=== PATIENT | male | born 1955 ===

== ENCOUNTER 2016-11-06 13:07 | Emergency (ER) | payer OTHER ==
[2016-11-06] MEDS ORDERED: Bacitracin 500 Units/gm Oint Foilpak UD TOP ONE (14:44)
[2016-11-06] MEDS ORDERED: Lidocaine 2% Inj (20ml) INFIL ONE (14:45)
[2016-11-06] MEDS ORDERED: Bacitracin 500 Units/gm Oint Foilpak UD ONE ×2 (15:06→17:36)
[2016-11-06] MEDS ORDERED: Lidocaine 2% Inj (20ml) ONE (15:06)
--- NOTE | 2016-11-06 15:15 | C.PDOC ---
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 Pt notes that he was carrying a refrigerator on the stairs, it fell and cut his hands. No change in sensation. Right hand dominant. Patient denies fever , chills, nausea, vomiting, LOC, or any other complaints Time Seen by Provider: 11/06/16 14:03 Chief Complaint (Nursing): Finger,Hand,&Wrist History Per: Patient History/Exam Limitations: other (Poor historian) Onset/Duration Of Symptoms: Hrs Current Symptoms Are (Timing): Still Present Quality: "Pain" Severity: Moderate Exacerbating Factor(s): Movement Additional History Per: Patient Past Medical History Reviewed: Historical Data, Nursing Documentation, Vital Signs Vital Signs: Last Vital Signs Temp 97.7 F 11/06/16 18:00 Pulse 78 11/06/16 18:00 Resp 18 11/06/16 18:00 BP 124/87 11/06/16 18:00 Pulse Ox 94 L 11/06/16 18:00 - Medical History PMH: Asthma Family History: States: Unknown Family Hx - Social History Hx Alcohol Use: Yes Hx Substance Use: No - Immunization History Hx Tetanus Toxoid Vaccination: No Hx Influenza Vaccination: No Hx Pneumococcal Vaccination: No Review Of Systems Review Of Systems: ROS cannot be obtained secondary to pt's inabilty to answer questions. Constitutional: Negative for: Fever, Chills Gastrointestinal: Negative for: Nausea, Vomiting Musculoskeletal: Positive for: Hand Pain (left hand lacerations) Neurological: Negative for: Other (LOC) Physical Exam - Physical Exam Appears: Non-toxic, No Acute Distress Skin: Warm, Dry, Other (multiple lacerations to the fingers, see procedure note. FROM. No change in sensation. ) Head: Atraumatic, Normacephalic Eye(s): bilateral: Normal Inspection, EOMI Nose: Normal Oral Mucosa: Moist Chest: Symmetrical Respiratory: No Accessory Muscle Use Extremity: Normal ROM, Tenderness, Capillary Refill (<2sec), Swelling Pulses: Left Radial: Normal, Right Radial: Normal Neurological/Psych: Oriented x3, Normal Speech, Normal Sensation ED Course And Treatment O2 Sat by Pulse Oximetry: 99 (RA) Pulse Ox Interpretation: Normal Progress Note: Plans: Bacitracin, Lidocaine, Tetanus, Ultram, X-Ray left hand, reassess and disposition. Immediately prior to procedure a "time out" was called to verify the correct patient, procedure and site. . Procedure: 4th finger. - 2cm "V" shape laceration to the mckenna aspect with 4 stitches of 5-0 nylon applied. -1 cm Dorsal aspect has "7" shape laceration with 4 stitches of 5-0 nylon applied. 3rd finger. -2 cm Superficial laceration to the radial aspect. Dermabond and steri strips applied. 2nd finger. -3cm : "V" shape laceration to the mckenna aspect with 8 stitches of 5-0 nylon applied. No foreign body or deep structure involvement was detected. Entire laceration closed with sutures. Patients condition remained stable throughout Emergency Department evaluation with no evidence of neurologic instability. There is always a risk of undetected foreign body nerve or tendon injury, therefore the importance of close follow-up care was stressed. Finger splint applied by pump technician. Patient was instructed to returned to the ER within 10-14 for sutras removal. Disposition - Disposition Disposition: HOME/ ROUTINE Disposition Time: 17:23 Condition: STABLE Additional Instructions: Wound check in 2 days. Suture removal in 10 days. Watch for signs of infection including redness, swelling and discharge. Prescriptions: Bacitracin OINT 1 applic TP BID #1 tube Cephalexin [cephalexin] 500 mg PO BID #14 cap Instructions: Finger Laceration (ED) Forms: Work Excuse Print Language: MOROCCAN - Clinical Impression Clinical Impression: Finger laceration - Scribe Statement The provider has reviewed the documentation as recorded by the Scribe Jose Raul gaffney All medical record entries made by the Skyeibrebecca were at my direction and personally dictated by me. I have reviewed the chart and agree that the record accurately reflects my personal performance of the history, physical exam, medical decision making, and the department course for this patient. I have also personally directed, reviewed, and agree with the discharge instructions and disposition.
--- NOTE | 2016-11-06 16:56 | RAD ---
PROCEDURE: Left Hand Radiographs. HISTORY: trauma COMPARISON: None available. FINDINGS: BONES: Ossific densities adjacent to the ulna styloid presumed related to remote injury ; correlate with physical exam in order to assess for point tenderness . No acute displaced fracture. JOINTS: No dislocation. SOFT TISSUES: Unremarkable. No evidence of radiopaque foreign body. OTHER FINDINGS: None. IMPRESSION: Ossific densities adjacent to the ulna styloid presumed related to remote injury ; correlate with physical exam in order to assess for point tenderness and exclude possibility of acute injury.
[2016-11-06 18:40] VITALS: BP 124/87; PULSE 78; RESP 18; TEMP 97.7
[2016-11-10 01:31] VITALS: O2SAT 99
== END 2016-11-06 18:00 | disposition home or self-care (01) ==
LOC: C.ER 13:07
DX: S61.211A Laceration without foreign body of left index finger without damage to nail, initial encounter (principal); S61.213A Laceration without foreign body of left middle finger without damage to nail, initial encounter; S61.215A Laceration without foreign body of left ring finger without damage to nail, initial encounter; W45.8XXA Other foreign body or object entering through skin, initial encounter; W22.09XA Striking against other stationary object, initial encounter; Y93.89 Activity, other specified; Y92.008 Other place in unspecified non-institutional (private) residence as the place of occurrence of the external cause

== ENCOUNTER 2016-11-08 13:11 | Emergency (ER) | payer OTHER ==
[2016-11-08 13:24] VITALS: BP 127/86; PULSE 82; RESP 20; TEMP 98.4; O2SAT 95; BMI 25.0
[2016-11-08] MEDS ORDERED: Bacitracin 500 Units/gm Oint Foilpak UD ONE (14:21)
--- NOTE | 2016-11-08 14:59 | C.PDOC ---
History Of Present Illness 61 yr old male presents to the ER for a scheduled wound check for stitches placed in the left hand 2 days ago. Patient denies fever, chills, weakness, sensory or vascular deficits to Left hand . Noted long arm fiberglass splint to Left hand. Pt denies any known fracture to left arm. Ambulate to Ed for evaluation, not n any apparent distress. Time Seen by Provider: 11/08/16 13:42 Chief Complaint (Nursing): Medical Clearance History Per: Patient History/Exam Limitations: no limitations Onset/Duration Of Symptoms: Days (2 days ago) Past Medical History Reviewed: Historical Data, Nursing Documentation, Vital Signs Vital Signs: Last Vital Signs Temp 98.4 F 11/08/16 13:23 Pulse 82 11/08/16 13:23 Resp 20 11/08/16 13:23 BP 127/86 11/08/16 13:23 Pulse Ox 95 11/08/16 22:40 - Medical History PMH: Asthma Family History: States: No Known Family Hx - Social History Hx Alcohol Use: Yes Hx Substance Use: No - Immunization History Hx Tetanus Toxoid Vaccination: No Hx Influenza Vaccination: No Hx Pneumococcal Vaccination: No Review Of Systems Except As Marked, All Systems Reviewed And Found Negative. Musculoskeletal: Negative for: Shoulder Pain, Arm Pain Skin: Positive for: Other (Left hand - [address]) Neurological: Negative for: Weakness, Numbness Physical Exam - Physical Exam Appears: Well, Non-toxic, No Acute Distress Skin: Warm, Dry, No Rash, Other (Left Hand: Well healing multiple lacerations to left hand dorsal and palmar aspect as well 2nd phalanx closed with sutures, appears clean, dry, intact, no wound discharge.No erythema, no proximal streaking. ) Extremity: Normal ROM, Capillary Refill (<2), No Deformity, No Swelling Neurological/Psych: Oriented x3, Normal Speech, Normal Motor, Normal Sensation, Normal Reflexes ED Course And Treatment O2 Sat by Pulse Oximetry: 95 Progress Note: Splint removed, wound thoroughly cleaned from dry bloody scabs. Sutures intact. Wound re-dreesed with bacitracin, non-stick, sterile dressing. Pt advsied on wound care. ref. to f/u with PMD in 2 days for wound check as need. Suture removal in 10days. Continue abx as intiated 2 days ago. Pt understand, stable for discharge now. Disposition Counseled Patient/Family Regarding: Diagnosis, Need For Followup - Disposition Referrals: [facility] [Outside] Disposition: HOME/ ROUTINE Disposition Time: 14:10 Condition: STABLE Additional Instructions: LIght duty to Left hand Keep wound clean, dry Remove dressing in 2 days, clean with peroxide daily, Bacitracin topically daily Follow up with PMD in 2 days for wound check as need Suture removal in 10 days return to ED at any time if any sign of infection Instructions: Care For Your Stitches (ED), Laceration (ED) - Clinical Impression Clinical Impression: Laceration, Medical assessment - PA / PHARMACOGNOSIST / Resident Statement MD/DO has reviewed & agrees with the documentation as recorded. - Scribe Statement The provider has reviewed the documentation as recorded by the Scribe Irina Whitehead All medical record entries made by the Scribe were at my direction and personally dictated by me. I have reviewed the chart and agree that the record accurately reflects my personal performance of the history, physical exam, medical decision making, and the department course for this patient. I have also personally directed, reviewed, and agree with the discharge instructions and disposition.
== END 2016-11-08 15:28 | disposition home or self-care (01) ==
LOC: C.ER 13:11
DX: Z48.00 Encounter for change or removal of nonsurgical wound dressing (principal)